=== PATIENT | female | born 1980 | race Caucasian/White ===

== ENCOUNTER 2018-05-31 23:26 | Observation (INO) | payer OTHER, MEDICAID ==
[2018-06-01 01:06] LABS: BASOPHILS % (AUTO) 1 % (0-3); EOSINOPHILS % (AUTO) 2 % (0-9); HEMATOCRIT 39 % (35-47); LYMPHOCYTES % (AUTO) 19.1 % (10-50); MEAN CORPUSCULAR HEMOGLOBIN 29.2 pg (27.0-32.0); MEAN CORPUSCULAR HGB CONC 33.7 gm/dl (32.0-36.0); MEAN CORPUSCULAR VOLUME 87 fL (81-99); MONOCYTES % (AUTO) 5.6 % (0-12); NEUTROPHILS % (AUTO) 72.6 % (37-80)
[2018-06-01] MEDS ORDERED: MORPHINE SULFATE 10 MG/ML SOL IV PRN (01:09)
[2018-06-01] MEDS ORDERED: ACETAMINOPHEN 325 MG PO PRN (01:09)
[2018-06-01] MEDS ORDERED: ONDANSETRON HCL 4 MG/2 ML SOL IV PRN (01:10)
[2018-06-01 01:14] LABS: CALCIUM 8.2 mg/dl (8.5-10.1); CARBON DIOXIDE 23.9 mEq/L (21-32); CREATININE 0.67 mg/dl (0.60-1.00); POTASSIUM 3.7 mMol/L (3.5-5.1)
[2018-06-01] MEDS ORDERED: ONDANSETRON 4 MG ODT BU PRN (03:14)
[2018-06-01 10:13] VITALS: TEMP 98.7; O2SAT 95
[2018-06-01 15:53] VITALS: BP 104/70; PULSE 96; RESP 18
== END 2018-06-01 17:25 | disposition home or self-care (01) | DRG 779 ==
LOC: ED 23:26 → ACUTE CARE 06-01 01:01
PROVIDERS: ADMIT Family Medicine; ATTEND Family Medicine
DX: O03.9 Complete or unspecified spontaneous abortion without complication (principal); Z3A.15 15 weeks gestation of pregnancy
CPT/HCPCS: 36415; 80048; 85018; 85025; 99283; J2405; A9270-GY